=== PATIENT | female | born 1970 | race Caucasian/White ===

== ENCOUNTER 2019-06-12 08:09 | Outpatient (REF) | payer MEDICARE, MEDICAID, SELFPAY ==
[2019-06-12 21:23] LABS: Abs Immature Grans 0.01 k/cumm (0.0-0.09); Absolute Basophil Count 0.02 k/cumm (0.0-0.2); Absolute Eosinophil Count 0.07 k/cumm (0.0-0.7); Absolute Lymphocyte Count 2.18 k/cumm (1.2-3.4); Absolute Monocyte Count 0.44 k/cumm (0.11-0.7); Absolute Neutrophil Count 2.62 k/cumm (1.2-6.7); Basophils % 0.4; Eosinophils % 1.3; HCT 46.7 % (36.0-46.0); HGB 14.8 g/dL (12.0-15.5); Immature Grans % 0.2; Lymphocytes % 40.8; Mean Corp. HGB Concentration 31.7 g/dL (32.0-36.0); Mean Corpuscular Hemoglobin 29.4 pg (27.0-33.0); Mean Corpuscular Volume 92.7 fL (80-95); Mean Platelet Volume 12.1 fL (8.0-11.0); Monocytes % 8.2; Neutrophils % 49.1; Platelet Count 206 x1000/uL (130-400); RBC 5.04 m/cumm (4.00-5.20); White Blood Cell Count 5.34 k/cumm (4.4-10.8)
[2019-06-12 21:49] LABS: ALT 9 U/L (14-59); AST 14 U/L (15-37); Albumin 4.3 g/dL (3.4-5.0); Alkaline Phosphatase 95 U/L (46-116); Anion Gap 11.7 mmol/L (3-11); BUN 11 mg/dL (7-18); Bilirubin, Total 0.4 mg/dL (0.2-1.0); CO2 27.3 mmol/L (21.0-32.0); Calcium 9.9 mg/dL (8.5-10.1); Calculated LDL 170 mg/dL; Chloride 106 mmol/L (98-107); Cholesterol 273 mg/dL (<200); Estimated GFR 31.69 (mL/min/1.73m2); Glucose 109 mg/dL (74-106); HDL Cholesterol 49 mg/dL (40-60); Magnesium 1.6 mg/dL (1.8-2.4); Potassium 4.2 mmol/L (3.5-5.1); Sodium 145 mmol/L (136-145); TSH (W/Ref FT4) 1.01 uIU/mL (0.36-3.74); Total Protein 7.9 g/dL (6.4-8.2); Triglyceride 274 mg/dL (<150)
[2019-06-13 09:33] LABS: Hemoglobin A1C 5.4 % (3.8-5.6)
== END 2019-06-12 08:29 ==
LOC: NCHCN 08:09
PROVIDERS: PCP Internal Medicine Adolescent Medicine; Visit Provider Nurse Practitioner Community Health
DX: R00.2 Palpitations (principal); N18.9 Chronic kidney disease, unspecified; R73.09 Other abnormal glucose
CPT/HCPCS: 80053; 80061; 83036; 83735; 84443; 85025

== ENCOUNTER 2019-06-28 09:39 | Outpatient (REF) | payer MEDICARE, MEDICAID, SELFPAY ==
--- NOTE | 2019-06-28 09:00 | PAPFT_PTH ---
PATIENT: Tania Black LOC: [facility] U#:[id number] AGE/SX: 49/F ROOM: RE06/28/[address]: Kaela Fu : 1970 BED: DIS: 06/28/2019 SPEC #: [id number] RECD: 06/29/19 12:26 STATUS: FARHAN REJorge #: [id number] WALLY: 06/28/19 09:[address]: Kaela Fu DEPT: [facility] Cytology RECD BY: Courtney Penaloza ENTERED: 06/29/19 12:27 SP TYPE: PAPFT OTHR DR: Chelsey Anaya Tissues: 1 - CX/ENDOCX FOR PAP SMEARS Procedures: PAP THIN PREP/[facility] Screening HPV DNA PROBE Comments: [id number]
== END 2019-06-28 09:59 ==
LOC: NCHCN 09:39
PROVIDERS: PCP Internal Medicine Adolescent Medicine; Visit Provider Nurse Practitioner Community Health
DX: Z12.4 Encounter for screening for malignant neoplasm of cervix (principal)
CPT/HCPCS: 88142; 87624

== ENCOUNTER 2019-11-03 15:24 | Outpatient (REF) | payer MEDICARE, MEDICAID, SELFPAY ==
[2019-11-03 21:33] LABS: Bilirubin Negative (Negative); Blood Negative (Negative); Clarity Clear (Clear); Glucose Negative (Negative); Ketones Negative (Negative); Leukocyte Esterase Large (Negative); Nitrite Negative (Negative); Urobilinogen 0.2 EU/dL (Up TO 0.2)
[2019-11-03 21:44] LABS: Bacteria Few HPF (Negative); C & S Indicated? C&S Done As Ordered; Casts Negative LPF (Negative); Crystals Negative HPF (Negative); Epithelial Cells Few HPF (Negative); Mucus Negative (Negative); RBC Negative HPF (0-2); WBC 20-50 HPF (0-5)
== END 2019-11-03 15:44 ==
LOC: NCHCN 15:24
PROVIDERS: PCP Internal Medicine Adolescent Medicine; Visit Provider Nurse Practitioner Community Health
DX: R82.90 Unspecified abnormal findings in urine (principal)
CPT/HCPCS: 81003; 81015; 87086

== ENCOUNTER 2020-02-14 13:30 | Outpatient (REF) | payer MEDICARE, MEDICAID, SELFPAY ==
[2020-02-14 20:25] LABS: HCT 40.6 % (36.0-46.0); HGB 13.2 g/dL (11.2-15.7); MCH 29.5 pg (27.0-33.0); MCHC 32.5 % (32.0-36.0); MCV 90.6 fL (80-95); MPV 11.4 fL (8.0-11.0); Platelet Count 195 10^3/uL (130-400); RBC 4.48 10^6/uL (3.93-5.22); RDW 13.5 % (11.7-14.6); RDW-SD 44.9 fL; WBC 5.91 10^3/uL (4.4-10.8)
[2020-02-14 21:23] LABS: ALT 12 U/L (14-59); AST 21 U/L (15-37); Albumin 3.7 g/dL (3.4-5.0); Alkaline Phosphatase 92 U/L (46-116); BUN 7 mg/dL (7-18); Bilirubin, Total 0.2 mg/dL (0.2-1.0); CREATININE 1.58 mg/dL (0.55-1.02); Calcium 8.9 mg/dL (8.5-10.1); Chloride 111 mmol/L (98-107); Estimated GFR 34.48 (mL/min/1.73m2); Glucose 81 mg/dL (74-106); Potassium 4.3 mmol/L (3.5-5.1); Sodium 142 mmol/L (136-145); Total Protein 6.7 g/dL (6.4-8.2); Vitamin B12 1085 pg/mL (193-986)
[2020-02-16 13:19] LABS: Hemoglobin A1C 5.6 % (<5.7)
== END 2020-02-14 13:50 ==
LOC: NCHCN 13:30
PROVIDERS: PCP Internal Medicine Adolescent Medicine; Visit Provider Nurse Practitioner Community Health
DX: N18.9 Chronic kidney disease, unspecified (principal); K21.9 Gastro-esophageal reflux disease without esophagitis; G60.9 Hereditary and idiopathic neuropathy, unspecified; Z79.899 Other long term (current) drug therapy
CPT/HCPCS: 80053; 85027; 82607; 83036

== ENCOUNTER 2020-06-06 22:02 | Outpatient (REF) | payer MEDICARE, MEDICAID, SELFPAY ==
[2020-06-06 22:15] LABS: Anion Gap 12.4 mmol/L (3-11); BUN 9 mg/dL (7-18); CO2 24.6 mmol/L (21.0-32.0); CREATININE 1.72 mg/dL (0.55-1.02); Calcium 9.3 mg/dL (8.5-10.1); Chloride 105 mmol/L (98-107); Estimated GFR 31.14 (mL/min/1.73m2); Glucose 85 mg/dL (74-106); Potassium 4.4 mmol/L (3.5-5.1); Sodium 142 mmol/L (136-145)
== END 2020-06-06 22:22 ==
LOC: NCHCN 22:02
PROVIDERS: PCP Internal Medicine Adolescent Medicine; Visit Provider Nurse Practitioner Community Health
DX: N18.9 Chronic kidney disease, unspecified (principal)
CPT/HCPCS: 80048

== ENCOUNTER 2020-09-11 22:43 | Outpatient (REF) | payer MEDICARE, MEDICAID, SELFPAY ==
[2020-09-11 22:35] LABS: Calculated LDL 171 mg/dL (<100); Cholesterol 270 mg/dL (<200); HDL Cholesterol 41 mg/dL (40-60); Hemoglobin A1C 5.8 % (<5.7); Triglyceride 291 mg/dL (<150)
== END 2020-09-11 22:44 | disposition home or self-care (01) ==
LOC: NCHCN 22:43
PROVIDERS: PCP Internal Medicine Adolescent Medicine; Visit Provider Nurse Practitioner Community Health
DX: R73.09 Other abnormal glucose (principal); E78.89 Other lipoprotein metabolism disorders
CPT/HCPCS: 80061; 83036

== ENCOUNTER 2021-04-16 12:49 | Outpatient (REF) | payer MEDICARE, MEDICAID, SELFPAY ==
[2021-04-16 22:03] LABS: Hemoglobin A1C 5.4 % (<5.7)
[2021-04-16 22:34] LABS: Anion Gap 9.3 mmol/L (3-11); BUN 12 mg/dL (7-18); CO2 25.7 mmol/L (21.0-32.0); CREATININE 1.4 mg/dL (0.55-1.02); Calcium 8.8 mg/dL (8.5-10.1); Chloride 110 mmol/L (98-107); Estimated GFR 39.49 (mL/min/1.73m2); Glucose 87 mg/dL (74-106); Potassium 4.8 mmol/L (3.5-5.1); Sodium 145 mmol/L (136-145); Vitamin B12 341 pg/mL (193-986)
[2021-04-21 15:32] LABS: IgA 239 mg/dL (85-499); Interpretation (See Note); Tissue Transglutaminase IgA <1.2 U/mL (<4.0)
== END 2021-04-16 12:50 | disposition home or self-care (01) ==
LOC: NCHCN 12:49
PROVIDERS: PCP Internal Medicine Adolescent Medicine; Visit Provider Nurse Practitioner Community Health
DX: E53.8 Deficiency of other specified B group vitamins (principal); N18.9 Chronic kidney disease, unspecified; R63.4 Abnormal weight loss; R19.7 Diarrhea, unspecified; Z86.39 Personal history of other endocrine, nutritional and metabolic disease
CPT/HCPCS: 80048; 82784; 83516; 82607; 83036